=== PATIENT | female | born 1995 | race African-American/Black ===

== ENCOUNTER 2023-12-21 11:03 | Emergency (ER) | payer OTHER ==
[~2023-12-21] VITALS: Ht 170.2 cm; Wt 64.0 kg
[2023-12-21 11:06] VITALS: O2SAT 97
[2023-12-21] MEDS: OLANZAPINE 10 MG/VIAL IM ONE (12:01)
[2023-12-21] MEDS: LORAZEPAM 2MG/ML INJ IM ONE (12:01)
[2023-12-21 16:12] LABS: BASOPHILS % 0.3 % (0.0-2.0); EOSINOPHILS % 0.2 % (0.0-5.0); HEMATOCRIT. 39.3 % (36.0-48.0); HEMOGLOBIN. 12.9 g/dL (12.0-16.0); LYMPHOCYTES % 16.7 % (20.0-50.0); MEAN CORPUSCULAR HGB CONC 32.7 g/dL (31.0-37.0); MEAN CORPUSCULAR VOLUME 88.8 fL (81.0-99.0); MEAN PLATELET VOLUME 8.4 fl (7.4-10.4); MONOCYTES % 5.9 % (2.0-8.0); NEUTROPHILS % 76.9 % (40.0-76.0); PLATELET 263 x1000/uL (130-400); RED BLOOD CELL COUNT 4.43 mill/uL (4.2-5.4); RED CELL DISTRIBUTION WIDTH 15.5 % (11.6-14.6)
[2023-12-21 16:16] LABS: CHLORIDE 107 mEq/L (98-107); POTASSIUM 3.8 mEq/L (3.5-5.1); SODIUM 140 mEq/L (136-145)
[2023-12-21 16:17] LABS: CALCIUM 9.5 mg/dL (8.7-10.4); CARBON DIOXIDE 25 mEq/L (21-32)
[2023-12-21 16:22] LABS: CREATININE 0.8 mg/dL (0.6-1.0); GLUCOSE 88 mg/dL (70-105); UREA NITROGEN BLOOD 11 mg/dL (9-23)
[2023-12-21 17:15] LABS: ETHANOL BLOOD < 10 mg/dL (<10)
[2023-12-22] MEDS: OLANZAPINE 10 MG/VIAL IM ONE (03:46)
[2023-12-22 11:08] LABS: CLARITY URINE CLOUDY (CLEAR); COLOR URINE YELLOW (YELLOW); GLUCOSE URINE NEGATIVE (NEGATIVE); KETONES URINE NEGATIVE (NEGATIVE); LEUKOCYTE ESTERASE URINE NEGATIVE (NEGATIVE); NITRITE URINE NEGATIVE (NEGATIVE); OCCULT BLOOD URINE TRACE (NEGATIVE); PH URINE 5.5 (4.5-8.0); PROTEIN URINE NEGATIVE (NEGATIVE); SPECIFIC GRAVITY URINE 1.028 (1.005-1.030)
[2023-12-22 11:31] LABS: *AMPHETAMINES SCREEN URINE NEGATIVE (NEGATIVE)
[2023-12-22 11:32] LABS: *BARBITURATES SCREEN URINE NEGATIVE (NEGATIVE); *BENZODIAZEPINES SCREEN URINE NEGATIVE (NEGATIVE); *COCAINE SCREEN URINE NEGATIVE (NEGATIVE); CANNABINOID URINE SCREEN NEGATIVE (NEGATIVE); ECSTASY MDMA SCREEN URINE NEGATIVE (NEGATIVE); METHADONE URINE SCREEN NEGATIVE (NEGATIVE); OPIATES URINE SCREEN NEGATIVE (NEGATIVE); PHENCYCLIDINE URINE SCREEN NEGATIVE (NEGATIVE)
[2023-12-22 11:36] LABS: MUCUS URINE 2+ /lpf (< = 2+); SQUAMOUS EPITHELIAL CELL URINE 2+ /lpf (RARE/1+)
[2023-12-22 11:37] LABS: BACTERIA URINE TRACE; RBC URINE 0-2 /hpf (0-2); WBC URINE 0-2 /hpf (0-2)
[2023-12-22] MEDS: DIPHENHYDRAMINE 50MG/ML VIAL IM ONE (16:00)
[2023-12-22] MEDS: LORAZEPAM 2MG/ML INJ IM ONE (16:00)
[2023-12-22] MEDS: HALOPERIDOL LACTATE 5MG/ML VIAL IM ONE (16:00)
[2023-12-22] MEDS: OLANZAPINE 10MG TABLET PO SCH (21:00)
[2023-12-22 23:53] LABS: HCG SCREEN NEGATIVE
[2023-12-23] MEDS: LORAZEPAM 2MG/ML INJ IM ONE (13:06)
[2023-12-23 15:31] VITALS: BP 139/85; PULSE 105; RESP 18; TEMP 98
== END 2023-12-23 15:32 ==
LOC: ER 11:03 → EDBD 11:03 → ER 12-23 15:32
DX: F23 Brief psychotic disorder (principal); Z20.822 Contact with and (suspected) exposure to COVID-19
CPT/HCPCS: 80305; 80048; 81003; 81025; 80320; 84703; 85025; 36415; 96372; 99285; 87426; J3490 ×2; J2060 ×3; Z7610 ×2; J1200; J1630; G0480